=== PATIENT | male | born 1955 | race Caucasian/White ===

== ENCOUNTER 2019-01-12 08:16 | Inpatient (IN) ==
[2019-01-12] MEDS ORDERED: ASPIRIN PO ONE (08:44)
[2019-01-12 08:59] LABS: BASO# 0.04 X1000 (0.0-0.2); BASO% 0.6 % (0.0-0.8); EOS% 4.4 % (0.0-10.0); HEMATOCRIT 39.2 % (42.0-52.0); HEMOGLOBIN 13.1 g/dL (14.0-18.0); IMM GRAN# 0.02 X1000 (0.0-0.04); IMM GRAN% 0.3 % (0.0-0.5); LYMPH# 2.46 X1000 (1.2-3.4); LYMPH% 35.9 % (20.5-51.1); MCHC 33.4 g/dL (33-37); MCV 95.6 FL (81-99); MONO# 0.58 X1000 (0.11-0.59); MONO% 8.5 % (1.7-9.3); MPV 11.6 FL (7.4-10.4); NEUT# 3.46 X1000 (1.4-6.5); NEUT% 50.3 % (42.2-75.2); PLT 155 X1000 (130-400); RDW 14.8 % (11.5-14.5); WBC 6.86 X1000 (4.8-10.8)
--- NOTE | 2019-01-12 09:01 | Diag Imaging Result Doc PS360 ---
EXAM: CHEST-2 VIEWS 01/12/2019 HISTORY: PALPITATIONS TECHNIQUE: PA and lateral chest COMMENT: There is somewhat suboptimal inspiration. There is no evidence of acute cardiac or pulmonary disease. There are no previous studies. IMPRESSION: No acute disease. Electronically signed by Santiago Mas 01/12/2019 8:58 AM
[2019-01-12 09:07] LABS: INR 0.94; PROTIME 13.4 Seconds (11.0-16.0)
[2019-01-12] MEDS ORDERED: CARDIZEM IV ONE (09:09)
--- NOTE | 2019-01-12 09:16 | PROVIDER DOCUMENTATION ---
HPI-Cardiac General - General Chief Complaint: Palpitations Stated Complaint: PALPITATIONS Time Seen by Provider: 01/12/19 09:05 Source: patient, family Allergies/Adverse Reactions: Patient Allergies Allergy/AdvReac Type Severity Reaction Status Date / Time No Known Allergies Allergy Verified 11/12/13 01:57 Home Medications: Home Medication List Medication Instructions Recorded Confirmed Last Taken Type Azelastine 205.5 Mcg Nasal Spr 1 spray TANYA BID PRN PRN 11/12/13 11/12/13 Unknown History [Astepro Nasal Temple] Bisoprolol Fumarate/Hctz 1 each PO DAILY 11/12/13 11/12/13 Unknown History [Bisoprolol-Hctz 2.5-6.25 mg Tb] Clorazepate Dipotassium [Tranxene 3.75 mg PO PRN PRN 11/12/13 11/12/13 Unknown History T-Tab] Fluticasone 50 Mcg Nasal [place] 1 spray TANYA DAILY 11/12/13 11/12/13 Unknown History [Flonase] Metformin HCl [Metformin HCl ER] 500 mg PO BID 11/12/13 11/12/13 Unknown History Moxifloxacin [Avelox] 400 mg PO DAILY #10 tablet 11/12/13 Unknown Rx Ramipril 10 mg PO DAILY 11/12/13 11/12/13 Unknown History Simvastatin 40 mg PO DAILY 11/12/13 11/12/13 Unknown History Tamsulosin [Flomax] 0.4 mg PO DAILY 11/12/13 11/12/13 Unknown History - History of Present Illness-Cardiac Palpitation lasted? (mins): 120 Palpitation Quality: irregular History of arrythmia: reports: other (episodes of tachy palpitations lasting 1-2 hr occuring over past 6 months. treated for htn byjcaqueline carlson with ramapril, smoker, recent recieved testosterone shots) Recent use of:: reports: no stimulants Nitro Today/Relief: reports: no nitro taken today Aspirin Treatment Today: reports: no aspirin today Prior Chest Pain/Cardiac Workup: reports: no prior chest pain Associated Symptoms: reports: weakness. denies: abdominal pain, back pain, diaphoresis, dizziness, edema, fever/chills, nausea, shortness of breath, vomiting Review of Systems - Adult - REVIEW OF SYSTEMS - ADULT Constitutional: reports: no symptoms reported. denies: chills, fever, night sweats Eyes: reports: no symptoms reported Ears, Nose, Mouth & Throat: reports: no symptoms reported Cardiovascular: reports: no symptoms reported Respiratory: reports: no symptoms reported Gastrointestinal: reports: no symptoms reported Genitourinary: reports: no symptoms reported Musculoskeletal: reports: no symptoms reported Integumentary: reports: no symptoms reported Neurological: reports: no symptoms reported Psychiatric: reports: no symptoms reported Endocrine: reports: no symptoms reported Hematologic/Lymphatic: reports: no symptoms reported Allergic/Immunologic: reports: no symptoms reported All Other Systems: Reviewed and Negative Past History - Adult - PAST MEDICAL HISTORY-ADULT Review of Records: reports: Old Records Reviewed, Nursing Assessment Review, Medications Reviewed, Social history reviewed & non-contributory. Major Childhood Illnesses: reports: denies history Cardiovascular: reports: denies history, HTN Respiratory: reports: denies history Gastrointestinal: reports: denies history Obstetrical/Gynecological: reports: denies history Genitourinary: reports: denies history Musculoskeletal: reports: denies history Neurological: reports: denies history Endocrine/Immune: reports: denies history Other Conditions: reports: denies history - PRIOR SURGERIES/PROCEDURES Surgical/Procedure History: denies: CABG - SOCIAL HISTORY Smoking: less than 1 pack/day Physical Exam-General - CONSTITUTIONAL General Appearance: appears well, alert, no apparent distress - EYES Eyes: PERRL/EOMI, pink conjunctivae - HEAD, EARS, NOSE, MOUTH & THROAT HENMT: normocephalic/atraumatic, moist mucous membranes - NECK Neck: non-tender, full range of motion, supple - RESPIRATORY Respiratory: lungs clear, normal breath sounds, no respiratory distress, no accessory muscle use, other (mild sternal/ant chest wall tenderness,( recent wt lifting) - CARDIOVASCULAR Cardiovascular: normal peripheral pulses, no edema, no JVD, no murmur, tach ycardia, irregularly irregular - GASTROINTESTINAL (ABDOMEN) Abdominal Exam: normal bowel sounds, non tender, soft - MUSCULOSKELETAL Back Exam: normal inspection Extremity: normal range of motion, non-tender, normal gait - SKIN Integumentary: normal color, warm/dry - NEUROLOGIC 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, grossly normal, no motor/sensory deficits, abnormal cerebellar tests - PSYCHIATRIC Psych/Mental Status: normal mood/affect, normal thought content, normal thought process, oriented x 3 - HEART Score HEART Score: History: Slightly Suspicious HEART Score: ECG: Non-Specific Repolarization Disturbance/LBBB/PM HEART Score: Age: 45-65 Years HEART Score: Risk Factors for Atherosclerotic Disease: 1 or 2 Risk Factors HEART Score: Troponin: < or = Normal Limit (3) Total HEART Score:: 3 Progress - PLAN OF CARE/RESULTS Progress/Plan/Lab Results: Vital Signs - 8 hr 01/12/19 08:28 01/12/19 08:32 01/12/19 09:00 Temperature 98.0 F Pulse Rate 126 H 114 H 111 H Respiratory Rate 20 14 17 Blood Pressure 166/94 163/106 177/116 O2 Sat by Pulse Oximetry 99 99 98 Laboratory Results - last 24 hr 01/12/19 01/12/19 01/12/19 08:32 08:32 08:32 WBC 6.86 RBC 4.10 L Hgb 13.1 L Hct 39.2 L MCV 95.6 MCH 32.0 H MCHC 33.4 RDW Std Deviation 14.8 H Plt Count 155 MPV 11.6 H Immature Gran % (Auto) 0.3 Neut % (Auto) 50.3 Lymph % (Auto) 35.9 [place] % (Auto) 8.5 Eos % (Auto) 4.4 Baso % (Auto) 0.6 Immature Gran # (Auto) 0.02 Neut # (Auto) 3.46 Lymph # (Auto) 2.46 [place] # (Auto) 0.58 Eos # (Auto) 0.30 Baso # (Auto) 0.04 PT INR PTT (Actin FS) Sodium 136 Potassium 3.5 Chloride 101 Carbon Dioxide 17 L Anion Gap 18 BUN 16 Creatinine 1.1 Estimated GFR/1.73 m2 > 60 BUN/Creatinine Ratio 15 Glucose 157 H Calculated Osmolality 276 Calcium 9.6 Total Bilirubin 0.81 AST 43 H ALT 53 H Alkaline Phosphatase 40 Creatine Kinase 548 H Creatine Kinase Index 1.7 CK-MB (CK-2) 9.44 H Troponin T Xro-[id number] Pept 185 H Total Protein 6.8 Albumin 4.4 Globulin 2.4 Albumin/Globulin Ratio 1.8 01/12/19 01/12/19 08:32 08:32 WBC RBC Hgb Hct MCV MCH MCHC RDW Std Deviation Plt Count MPV Immature Gran % (Auto) Neut % (Auto) Lymph % (Auto) [place] % (Auto) Eos % (Auto) Baso % (Auto) Immature Gran # (Auto) Neut # (Auto) Lymph # (Auto) [place] # (Auto) Eos # (Auto) Baso # (Auto) PT 13.4 INR 0.94 PTT (Actin FS) 25.0 Sodium Potassium Chloride Carbon Dioxide Anion Gap BUN Creatinine Estimated GFR/1.73 m2 BUN/Creatinine Ratio Glucose Calculated Osmolality Calcium Total Bilirubin AST ALT Alkaline Phosphatase Creatine Kinase Creatine Kinase Index CK-MB (CK-2) Troponin T < 0.010 Pnd-Z-Skiwhaqyibp Pept Total Protein Albumin Globulin Albumin/Globulin Ratio Orders Category Date Time Status Cardiac Monitoring DIRECTED Care 01/12/19 08:45 Active Oxygen Therapy- ED Nursing DIRECTED Care 01/12/19 08:45 Active Saline Loc NOW Care 01/12/19 08:45 Active CHEST-2 VIEWS [RAD] Stat Exams 01/12/19 08:45 Completed CBC WITH ELECTRONIC DIFF [HEME] Stat Lab 01/12/19 08:32 Completed CK PROFILE [SP CHEM] Stat Lab 01/12/19 08:32 Completed COMPREHENSIVE METABOLIC PANEL [CHEM] Stat Lab 01/12/19 08:32 Completed PRO B-NATRIURETIC PEPTIDE Stat Lab 01/12/19 08:32 Completed PROTIME WITH INR [COAG] Stat Lab 01/12/19 08:32 Completed PTT [COAG] Stat Lab 01/12/19 08:32 Completed TROPONIN T Stat Lab 01/12/19 08:32 Completed 0.9% Sodium Chloride Inj [Ns] 500 ml Med 01/12/19 09:19 Discontinued IV 999 mls/hr Aspirin Med 01/12/19 08:44 Discontinued 325 mg PO NOW ONE Diltiazem [Cardizem] Med 01/12/19 09:09 Discontinued 25 mg IV NOW ONE CP/SOB/Palp >45 yrs of Age Stat Oth 01/12/19 08:44 Ordered EKG [EKG] Stat Ther 01/12/19 08:45 Ordered Result Diagrams: 01/12/19 08:32 01/12/19 08:32 - REASSESSMENT Reassessment #1 Time Reassessed: 11:04 Status: improving (STILL IN A FIB AT RATE 85-90, BP 125/83.) Reassessment #2 Time Reassessed: 12:00 Status: unchanged (dr mckeon at bedside, cardiology at [facility] has not called back. pt agrees to admission DM and see cardiology here) - CONSULTS/PCP/HOSPITALIST Notification #1 *Consult/PCP/Hospitalist*: DR MCKEON FOR DR JUÁREZ Time Discussed: 11:04 Consult Disposition: Will see in ED, other (WILL ING TO COME SEE PT IN ER, PT WOULD RATHER GO TO [facility]) #2 Consult: TRANSFER CENTER, [facility]-WILL CALL BACK Time Discussed: :13 #3 Consult: DR MCKEON Time Discussed: 12:02 Consult Disposition: Admit Departure - Departure Date of Disposition Decision: 01/12/19 Time of Disposition Decision: 11:13 DIAGNOSIS: Atrial fibrillation, Elevation of cardiac enzymes Disposition: ADMITTED INPATIENT 09 Certified Medical Emergency: Emergent Condition: Fair Referrals and Follow-Ups: Thiago Juárez MD [Primary Care Provider] - - Critical Care Note This patient required my direct & personal management of CC.: Yes Total Time (mins): 32 Critical Care Statement: This patient required my direct personal management to treat or rule out processes, the absence of which, could potentiallly result in sudden, clinically significant life or limb threatening deterioration. Attestation - Physician/ NILES Attestation The physician spent face to face time with patient:: Yes Advanced Practice Provider documentation review:: Supervising physician onsite and consulted in the evaluation and care of this patient. The physician did have a face to face encounter with the patient.
[2019-01-12 09:19] LABS: AGAP 18; ALB/GLOB RATIO 1.8; ALBUMIN 4.4 g/dL (3.5-5.0); ALKALINE PHOSPHATASE 40 U/L (32-122); BUN 16 mg/dL (8-22); CALCIUM 9.6 mg/dL (8.8-10.2); CHLORIDE 101 mmol/L (98-107); COSMO 276; CREATININE 1.1 mg/dL (0.7-1.2); ESTIMATED GFR > 60; GLUCOSE 157 mg/dL (70-104); GOT 43 U/L (10-34); GPT 53 U/L (10-44); POTASSIUM 3.5 mmol/L (3.5-5.1); SODIUM 136 mmol/L (136-145); TCO2 17 mmol/L (25-35); TOTAL BILIRUBIN 0.81 mg/dL (0.20-1.00); TOTAL PROTEIN 6.8 g/dL (6.3-8.3)
[2019-01-12] MEDS ORDERED: NS 500 ML IV ONE (09:19)
[2019-01-12 09:20] LABS: CK PROFILE 548 U/L (24-204)
[2019-01-12 09:44] LABS: CK INDEX 1.7 (0.0-2.5); CK-MB 9.44 ng/mL (0.0-5.0)
--- NOTE | 2019-01-12 11:43 | ED EKG INTERP ---
This chart was entered by Génesis Reyes Scribe, acting as scribe for Scottie Maradiaga MD. EKG Interpretation - EKG Time of EKG reading by physician:: 08:28 EKG Read and Signed by:: Scottie Maradiaga EKG Interpretation (*Must complete 3 of following elements*): Abnormal Rate: 112 Rhythm: Afib w/ RVR [place]: normal QRS: normal OK Interval: normal ST Wave: normal - EKG # 2 Time of EKG reading by physician:: 11:24 EKG Read and Signed by:: Scottie Maradiaga EKG Interpretation (*Must complete 3 of following elements*): Abnormal Rate: 93 Rhythm: Afib [place]: normal QRS: LVH (minimal voltage criteria) OK Interval: normal ST Wave: normal Attestation - Physician/ NILES Attestation Patient care was provided by Advanced Practice Provider:: No The physician spent face to face time with patient:: Yes Advanced Practice Provider documentation review:: Supervising physician onsite and consulted in the evaluation and care of this patient. The physician did have a face to face encounter with the patient. This chart was documented by the indicated scribe, (Génesis Reyes Scribe) and accurately reflects the services I performed and decisions made by me, Scottie Maradiaga MD, as attested by the provider's signature.
--- NOTE | 2019-01-12 12:39 | HISTORY AND PHYSICAL ---
PATIENT PROFILE: Mr. Mtz is a patient of Dr. Thiago Juárez. He is 63 years old. HISTORY OF PRESENT ILLNESS: 1. He presented with palpitations. His tympanic membranes are partially obstructed, so he could hear his pulse and he could feel it in his neck, and so he when he presented, he had atrial fibrillation with rapid rate and blood pressure and hemodynamics look stable. In fact, blood pressure was a little elevated. His home medications: He is taking ramipril 10 mg a day and that is really it for blood pressure medicines. So, we are going to check serial EKGs and cardiac enzymes. I will ask Cardiology to evaluate. He did mention if he has a heart catheterization, he wants to go to [place]. I explained there is no indication right now that he will have a heart catheterization, but we did need to watch him and check his enzymes. He does not give a history of squeezing or pressure-type pain. Does have some soreness; apparently he has recently started working out with weights, and he feels got some soreness from that. 2. Diabetes mellitus type 2. Will check pattern sugars. Continue his present medication. 3. Benign prostatic hypertrophy. He is on Flomax. I will continue that at 0.4 mg a day. 4. Allergic rhinitis. Continue his nasal spray. 5. Hypercholesterolemia. Aware. 6. Obstructive sleep apnea. Wears a CPAP at night, and he did wear it last night. PAST MEDICAL HISTORY: 1. Diabetes mellitus type 2. 2. Hypercholesterolemia. 3. Obstructive sleep apnea. Wears CPAP at night. SURGICAL HISTORY: 1. He has had left carpal tunnel. 2. He has had a right shoulder cuff tear. 3. He has had an appendectomy years ago. 4. Status post cholecystectomy years ago. ALLERGIES: He has no known drug allergies. FAMILY HISTORY: Mother of a heart attack. He has a brother who has coronary artery disease. He reports that he has had a heart catheterization. He does not remember how long ago, and they had minimal blockage I think was reported, though he does not remember the details. SOCIAL HISTORY: Denies alcohol or tobacco. REVIEW OF SYSTEMS: General: No weight gain or loss to report. HEENT: No change in visual or hearing acuity. Neck: No neck pain. No cervical adenopathy. No thyroid issues. Neck is nontender. Cardiovascular: No chest pain, but he noticed palpitations today, that is what brought him here to the hospital. Gastrointestinal and Genitourinary: No gross hematuria or dysuria. Musculoskeletal/Neurologic: No focal complaints. Endocrinologic/Hematologic: No significant history. PHYSICAL EXAM: VITAL SIGNS: In the emergency room, temperature 98.0 degrees, pulse 110, respirations 17, blood pressure 177/116. HEENT: Pupils are equal and round. LUNGS: Clear in all lung [place]. CARDIOVASCULAR EXAM: Regular rhythm and rate without murmur or S3. ABDOMEN: Soft. SKIN: Warm and dry. O2 saturation was 98%. LAB: White count 6860, hematocrit 39, platelet count 155,000. Sodium 136, potassium 3.5, chloride 101, bicarbonate 17. BUN 16, creatinine 1.1, calcium 9.6. AST 43, ALT was 53 mildly elevated. Albumin 4.4. Pro time is 13.4, PTT is 25. CK was 548 with an MB of 9.44. Troponin was less than 0.01. X-RAY: Chest x-ray: No acute disease. cc: Christian Gotti MD
[2019-01-12] MEDS ORDERED: CLORAZEPATE DIPOTASSIUM 3.75 MG PO PRN (13:25)
[2019-01-12] MEDS ORDERED: TYLENOL PO PRN (13:25)
[2019-01-12] MEDS ORDERED: ASTEPRO NASAL SPRAY NAS PRN (13:25)
[2019-01-12] MEDS ORDERED: ZOFRAN IV PRN (13:25)
[2019-01-12] MEDS: HUMULIN R SUBQ SCH ×2 (16:00→21:00)
[2019-01-12 17:10] LABS: BASO# 0.03 X1000 (0.0-0.2); BASO% 0.5 % (0.0-0.8); EOS# 0.18 X1000 (0.0-0.7); HEMATOCRIT 39.1 % (42.0-52.0); HEMOGLOBIN 12.8 g/dL (14.0-18.0); LYMPH# 1.95 X1000 (1.2-3.4); LYMPH% 32.2 % (20.5-51.1); MCHC 32.7 g/dL (33-37); MCV 97.8 FL (81-99); MONO# 0.55 X1000 (0.11-0.59); MONO% 9.1 % (1.7-9.3); MPV 11.3 FL (7.4-10.4); NEUT# 3.35 X1000 (1.4-6.5); NEUT% 55.2 % (42.2-75.2); PLT 158 X1000 (130-400); RDW 14.9 % (11.5-14.5); WBC 6.06 X1000 (4.8-10.8)
--- NOTE | 2019-01-12 17:26 | CARDIOLOGY CONSULTATION ---
DATE: 01/12/2019 REASON FOR CONSULTATION: Cardiology was consulted for atrial fibrillation. HISTORY OF PRESENT ILLNESS: Mr. Mtz is a 63-year-old, gentleman with history of hypertension, diabetes who comes with complaints of having palpitations and elevated blood pressures. He has noted these episodes of palpitations intermittently for the last 6 months or more. In the past they have been transient, not associated with any dizziness or syncope. However, these symptoms were persistent. He called 911 and came to the emergency room. He did have associated squeezing-like chest discomfort. He was noted to be in atrial fibrillation with rapid rate, subsequently converted to sinus rhythm. In the past, 5 or 6 years back or longer, he had 1 episode of atrial fibrillation or fast heartbeat at a rate of 140 at that time. I had seen him then. He did go to [facility], had a cardiac catheterization. No obvious blockages at that time. I do not have records of the same. Currently, he is pain-free. There is no orthopnea, paroxysmal nocturnal dyspnea. He is otherwise active. He has noticed mild worsening shortness of breath recently. He goes to the gym regularly. REVIEW OF SYSTEMS: GI: There is no history of nausea, vomiting, diarrhea. There is no history of hematemesis or melena. Central nervous system: No focal weakness to suggest a CVA or TIA. Genitourinary: There is no dysuria or hematuria. PAST MEDICAL HISTORY: 1. Diabetes. 2. Hypercholesterolemia. 3. Hypertension. 4. Obstructive sleep apnea. 5. History of palpitations in the distant past and cardiac catheterization in [place] which, per patient, was unremarkable. This was many years back. 6. He has hypotestosteronism. 7. Hypercholesterolemia. 8. Left carpal tunnel surgery. 9. Right shoulder cuff repair. 10. Appendectomy. 11. Cholecystectomy. ALLERGIES: He is not known to be allergic to any medication. SOCIAL HISTORY: He does not smoke. Drinks alcohol on a regular basis. Drinks at least a pint of whiskey. Last night he had 2 shots and 3 beers as well. He stopped smoking many years ago. HOME MEDICATIONS: Metformin 500 mg p.o. b.i.d., tamsulosin, bisoprolol/hydrochlorothiazide, simvastatin 40, ramipril 10, enteric-coated aspirin. PHYSICAL EXAMINATION: Vital Signs: Blood pressure was 170/100. Cardiovascular System: Normal jugular venous pressure. There is no thyromegaly. No carotid bruit. First and second heart sounds were heard. There is no S3, S4, or gallop. Respiratory System: Normal air entry. There is no crepitations or rhonchi. Abdomen: Soft, nontender. There was no guarding or rigidity. Bowel sounds were heard. Central nervous system: Alert. Was moving all 4 extremities. Extremities: Examination of extremities revealed no pedal edema. HEENT: Atraumatic, normocephalic. Pupils equal and reacting to light. LABORATORY STUDIES: Sodium 136, potassium 3.5, BUN 16, creatinine 1.1. AST 43, ALT 53. Creatine kinase 548. CK 1.7, CK-MB 9.4. Troponin was negative. ProBNP 185. Hematology: WBC 6.8, hemoglobin 13, hematocrit 95, platelet count of 155,000. RADIOLOGIC STUDIES: Chest x-ray was unremarkable. ASSESSMENT: Mr. Moises Mtz is a 63-year-old, gentleman with history of hypertension, diabetes, alcohol abuse, sleep apnea who has been having palpitations intermittently for at least 6 months off and on. In addition has noticed increasing shortness of breath recently. He comes with complaints of having increasing palpitations and heaviness in his chest which he states is mild discomfort. Currently, he is pain-free. Electrocardiogram revealed normal sinus rhythm. Initial electrocardiogram revealed atrial fibrillation. PLAN: 1. We will get an echocardiogram to assess cardiac and valvular function. 2. We will set him up to undergo a Cardiolite stress test to assess for and rule out ischemia if his cardiac enzymes are negative. 3. We will get serial cardiac enzymes. 4. He has history of significant alcohol abuse. We will also get an abdominal ultrasound to check his liver and get further sets of liver function tests as well. 5. As far as hypertension is concerned, continue with his current medications. 6. Diabetes. Continue with his current medications. 7. We will also check a thyroid profile. 8. I had a detailed discussion with the patient. Given his elevated CHADS2-VASc score, he needs to be anticoagulated. I will withhold anticoagulation pending his further testing during this hospitalization. 9. He has chronic alcohol abuse. I have advised him to stop drinking. Thank you for the consult. We will follow hospital course. cc: MD Thiago Wahl MD MTDD
[2019-01-12 17:28] LABS: AGAP 14; ALB/GLOB RATIO 1.8; ALBUMIN 4.2 g/dL (3.5-5.0); ALKALINE PHOSPHATASE 36 U/L (32-122); BUN 15 mg/dL (8-22); CALCIUM 9.7 mg/dL (8.8-10.2); CHLORIDE 103 mmol/L (98-107); COSMO 284; CREATININE 1.2 mg/dL (0.7-1.2); ESTIMATED GFR > 60; GLUCOSE 132 mg/dL (70-104); GOT 41 U/L (10-34); GPT 52 U/L (10-44); MAGNESIUM 1.2 mg/dL (1.5-2.7); POTASSIUM 4.3 mmol/L (3.5-5.1); SODIUM 141 mmol/L (136-145); TCO2 24 mmol/L (25-35); TOTAL BILIRUBIN 1.24 mg/dL (0.20-1.00); TOTAL PROTEIN 6.6 g/dL (6.3-8.3)
[2019-01-12 17:43] LABS: CK INDEX 1.5 (0.0-2.5); CK-MB 5.86 ng/mL (0.0-5.0)
[2019-01-12] MEDS: NS + KCL 40 MEQ 1,000 ML IV SCH (20:45)
[2019-01-12] MEDS: GLUCOPHAGE XR PO SCH (21:00)
[2019-01-12] MEDS: ZOCOR PO SCH (21:00)
[2019-01-13] MEDS: HUMULIN R SUBQ SCH ×4 (06:51→22:35)
[2019-01-13] MEDS: FLOMAX PO SCH ×2 (09:00→10:01)
[2019-01-13] MEDS: FLONASE NAS SCH (09:00)
[2019-01-13] MEDS: ALTACE PO SCH (10:00)
[2019-01-13] MEDS: GLUCOPHAGE XR PO SCH ×2 (10:02→22:34)
[2019-01-13] MEDS: PRILOSEC PO SCH (10:03)
[2019-01-13] MEDS: ZIAC 2.5/6.25 MG PO SCH (10:04)
--- NOTE | 2019-01-13 10:21 | Diag Imaging Result Doc PS360 ---
EXAM: US ABDOMEN-COMPLETE 01/13/2019 HISTORY: afib alc abuse abn lft TECHNIQUE: Abdominal ultrasound COMMENT: The liver is hyperechoic. The pancreas is obscured. The visualized portions of the aorta and inferior vena cava are within normal limits. The kidneys are without evidence of hydronephrosis or mass. The gallbladder is surgically absent. The spleen is not enlarged. There is no evidence of biliary dilatation the common bile duct measuring 5 mm. There are no abnormal fluid collections. Compared to the previous study of 10/27/2011 the appearance of the kidneys has not changed significantly. IMPRESSION: Hepatic steatosis. Electronically signed by Santiago Mas 01/13/2019 10:19 AM
[2019-01-13] MEDS: NS + KCL 40 MEQ 1,000 ML IV SCH (11:00)
--- NOTE | 2019-01-13 13:52 | PROGRESS NOTE ---
DATE: 01/13/2019 SUBJECTIVE: Mr. Mtz had converted back to sinus rhythm last night. Still in the emergency room, waiting on a room. He has not had any chest pain and not had any more feeling of palpitations. His enzymes, CPK and troponin, CPK is 386 but his troponin was less than 0.01. I talked to Dr. Pool. Apparently, his echocardiogram and EKGs looked okay. I believe they are planning a stress test in the morning. PHYSICAL EXAMINATION: Vital Signs: Temperature 98.0 degrees, pulse 57, respirations 17, blood pressure 139/82. HEENT: Pupils are equal and round. Lungs: Clear in all lung [place]. Cardiovascular Examination: Regular rhythm and rate without murmur or S3. Abdomen: Soft, nontender, nondistended. Extremities: No pedal edema. DIAGNOSTIC DATA: Review of ultrasound of the abdomen unremarkable except for steatosis by report. Dr. Pool said the echocardiogram looks good. His serial EKGs and cardiac enzymes have been negative so I think the plan is for a stress test in the morning. Monitor shows sinus rhythm. ASSESSMENT AND PLAN: 1. Atrial fibrillation, new onset, paroxysmal atrial fibrillation. He reports today that he drinks probably close to a pint a day of alcohol. I explained to him that he needs to quit drinking, not only for his trying to prevent atrial fibrillation from returning but also because of steatosis and affects on his liver. He understands that is going to be a primary point of therapy. We will plan on doing the stress test. He has no concerns about withdrawal but there is a possibility of delirium tremens as well and he is fairly anxious. His speech is fairly rapid so we will see. He is on Prilosec 40 mg a day. 2. Diabetes mellitus type 2. Sugar is under good control. 3. History of hypercholesterolemia. 4. History of obstructive sleep apnea. Wears CPAP at night. 5. Review of his orders. I do not see any change at this point. His blood pressures look well controlled. cc: MD Thiago Hodge MD
[2019-01-13 14:35] LABS: CK INDEX 1.9 (0.0-2.5); CK-MB 5.13 ng/mL (0.0-5.0)
--- NOTE | 2019-01-13 17:48 | ECHO REPORT ---
ORDER DATE: 01/13/2019 ECHOCARDIOGRAPHIC MEASUREMENTS: Interventricular septum 1.1 cm. Left ventricular posterior wall 1.1 cm. Diastolic diameter 5.3 cm. Left atrium 4 cm. Aorta 3.4 cm. SUMMARY OF THE TWO-DIMENSIONAL IMAGING: Pulmonic valve was normal. There is trace pulmonary regurgitation. The aortic valve leaflets are trileaflet. There is left atrial enlargement. Mitral valve was normal. Tricuspid valve was normal. There is mild mitral regurgitation. Peak velocity across the aortic valve less than 2 m/sec. There is no aortic stenosis or regurgitation. Normal left ventricular cavity size. Estimated ejection fraction of 60%. There is mild tricuspid regurgitation. Peak velocity across the tricuspid valve was 2.2 m/sec. There is no pericardial effusion or obvious intracardiac mass or thrombus seen. Technically suboptimal study. Endocardium not well visualized in all views. cc: MD Thiago Wahl MD
[2019-01-13 18:22] LABS: CK INDEX 1.9 (0.0-2.5); CK-MB 5.25 ng/mL (0.0-5.0)
[2019-01-13] MEDS: ZOCOR PO SCH (22:34)
[2019-01-14] MEDS: NS + KCL 40 MEQ 1,000 ML IV SCH (01:00)
[2019-01-14] MEDS: HUMULIN R SUBQ SCH (06:45)
--- NOTE | 2019-01-14 07:23 | EKG Report ---
Test Performed on : 01/12/2019 4:09:36 PM Test Reason : CP Blood Pressure : / mmHG Vent. Rate : 057 BPM Atrial Rate : 057 BPM P-R Int : 160 ms QRS Dur : 080 ms QT Int : 416 ms P-R-T Axes : 018 -22 -04 degrees QTc Int : 404 ms Sinus bradycardia. Minimal voltage criteria for LVH, may be normal variant Borderline ECG When compared with ECG of 12-JAN-2019 11:42, (Unconfirmed) Significant changes have occurred Unconfirmed Result
--- NOTE | 2019-01-14 07:27 | EKG Report ---
Test Performed on : 01/13/2019 07:12:36 AM Test Reason : chest pain Blood Pressure : / mmHG Vent. Rate : 051 BPM Atrial Rate : 051 BPM P-R Int : 164 ms QRS Dur : 084 ms QT Int : 438 ms P-R-T Axes : 022 -15 -01 degrees QTc Int : 403 ms Sinus bradycardia. Minimal voltage criteria for LVH, may be normal variant Borderline ECG When compared with ECG of 12-JAN-2019 16:09, (Unconfirmed) No significant change was found Unconfirmed Result
[2019-01-14] MEDS: PRILOSEC PO SCH (08:52)
[2019-01-14] MEDS: FLOMAX PO SCH (08:52)
[2019-01-14] MEDS: ALTACE PO SCH (08:52)
[2019-01-14] MEDS: GLUCOPHAGE XR PO SCH (08:52)
[2019-01-14] MEDS ORDERED: ELIQUIS PO SCH (09:00)
[2019-01-14] MEDS: ZIAC 2.5/6.25 MG PO SCH (09:02)
[2019-01-14] MEDS: FLONASE NAS SCH (09:04)
--- NOTE | 2019-01-14 09:57 | EKG Report ---
Test Performed on : 01/12/2019 11:42:07 AM Test Reason : PALPITATIONS Blood Pressure : / mmHG Vent. Rate : 068 BPM Atrial Rate : 082 BPM P-R Int : 000 ms QRS Dur : 100 ms QT Int : 446 ms P-R-T Axes : 000 052 091 degrees QTc Int : 474 ms Accelerated Junctional rhythm. Nonspecific ST and T wave abnormality Abnormal ECG When compared with ECG of 12-JAN-2019 11:18, (Unconfirmed) Junctional rhythm. has replaced Atrial fibrillation. QRS duration has increased ST elevation now present in Inferior leads ST no longer elevated in Lateral leads Nonspecific T wave abnormality now evident in Lateral leads Unconfirmed Result
--- NOTE | 2019-01-14 09:57 | EKG Report ---
Test Performed on : 01/12/2019 11:18:22 AM Test Reason : PALPITATIONS Blood Pressure : / mmHG Vent. Rate : 093 BPM Atrial Rate : 357 BPM P-R Int : 000 ms QRS Dur : 080 ms QT Int : 346 ms P-R-T Axes : 000 -20 -02 degrees QTc Int : 430 ms Atrial fibrillation. Minimal voltage criteria for LVH, may be normal variant Abnormal ECG When compared with ECG of 12-JAN-2019 08:28, (Unconfirmed) No significant change was found Unconfirmed Result
[2019-01-14] MEDS ORDERED: LEXISCAN ONE (12:13)
--- NOTE | 2019-01-14 14:59 | Diag Imaging Result Document ---
PROCEDURE NAME: MYOCARDIAL PERF SCAN, STR/REST - 01/14/2019 INDICATION: Chest pain. PROCEDURES PERFORMED: 1. Lexiscan stress. 2. One-day stress rest myocardial perfusion imaging. PROCEDURE IN DETAIL: Mr. Mtz was brought to the nuclear laboratory and had a resting study with injection of 15.8 mCi of technetium-99m sestamibi with the usual imaging protocol utilized. He subsequently was brought back and had a walking Lexiscan, and at peak stress, was injected with 46.3 mCi of technetium-99m sestamibi with usual imaging protocol utilized. FINDINGS: Lexiscan stress results: 1. Baseline EKG shows sinus rhythm. 2. Lexiscan stress did not demonstrate any clear evidence of ischemic-related EKG changes or significant arrhythmias. Perfusion imaging results: 1. No evidence of abnormal extracardiac uptake. 2. TID ratio is 1.08. 3. Perfusion imaging shows a small-sized, mild intensity, fixed defect in the basal and mid anterior wall. There is no evidence of ischemia. Wall motion appears to be intact in the affected areas. 4. Normal ejection fraction of 68%. End-diastolic volume 143, end-systolic volume 46. Normal wall motion. cc: MD Ernst León MD
[2019-01-14 21:17] VITALS: BP 184/53
--- NOTE | 2019-01-15 13:13 | DISCHARGE SUMMARY ---
ADMISSION DATE: 01/12/2019 DISCHARGE DATE: 01/14/2019 FINAL DIAGNOSES: 1. Acute paroxysmal atrial fibrillation with rapid ventricular response, converted. 2. Suspected alcohol abuse. 3. Type 2 diabetes mellitus. 4. Hypertension. 5. Hypercholesterolemia. HISTORY OF PRESENT ILLNESS: Mr. Mtz is a 63-year-old retired gentleman who has a long history of hypertension and diabetes, who presented to the emergency room with a brief history of palpitations. His EKG and rhythm strip demonstrated atrial fibrillation with rapid ventricular response of 150 to 175 beats per minute. In the emergency room, he was treated with intravenous Cardizem which controlled his heart rate. He was admitted for further evaluation and management. Physical examination revealed a heavyset middle-aged white male with unremarkable HEENT exam. His neck was supple with no jugular venous distention other than occasional pelaez A waves. Lungs were clear. Cardiac exam with rapid, irregular rhythm which responded to medication but remained irregular. Extremities with no edema. DATABASE: Hemoglobin 13.1, hematocrit 39.2. CO2 was 17 on admission but shortly afterwards kendall to 24. Glucose was 157. Electrolytes otherwise normal. BUN and creatinine were normal. Liver enzymes were slightly high with AST of 43, ALT of 53. CPK was 548, but troponins were negative. TSH was normal. 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 His echocardiogram showed normal left ventricular measurements, mild left atrial enlargement at 4 cm. There was mild mitral regurgitation. No aortic stenosis or regurgitation. Estimated left ventricular ejection fraction was 60%, otherwise unremarkable. On the day of discharge, he underwent a walking Lexiscan, and the report of this is also unremarkable with minimal diaphragmatic attenuation but normal wall motion. 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 He was started on Eliquis 5 mg twice a day. He was advised to cease all alcohol consumption, and he felt confident he could do this as he had done it in the past without difficulty. He is to return to my office in 8 to 14 days for followup. cc: Thiago Juárez MD
== END 2019-01-14 20:30 | disposition home or self-care (01) | DRG 310 ==
LOC: SUPCPDRO → ED 08:16 → EDIPHOLD 08:17 → 3N 01-13 16:20
PROVIDERS: ADMIT Internal Medicine; ATTEND Internal Medicine
CPT/HCPCS: 71020; 71046; 76700; 78452; 80053; 82550; 82553; 82948; 83735; 83880; 84443; 84484; 85025; 85610; 85730; 93005; 93017; 93306; 96365; 96366; 96375; 99285; A9270; A9500; J2785; J7040; XXXXX